=== PATIENT | male | born 1960 | race Caucasian/White ===

== ENCOUNTER → 2021-08-02 | Outpatient (CLI) | payer BC ==
[~2021-08-02] MED LIST: DOBUTamine DRIP for NUC MED 500 MG in DEXTROSE/WATER 1 250ML.BAG IV PRN
--- NOTE | 2021-08-02 14:57 | ECHOS ---
STRESS ECHOCARDIOGRAM DATE OF STUDY: 08/02/2021 INDICATIONS: Chest discomfort. BASELINE HEART RATE: 91 BASELINE BLOOD PRESSURE: 124/82 MAXIMUM HEART RATE: 136 MAXIMUM BLOOD PRESSURE: 134/69 85% MPHR: 136 100% MPHR: 160 METS: NA MAXIMUM STAGE REACHED: 3 TOTAL EXERCISE TIME: 8:12 infusion time CLINICAL INFORMATION: STRESS DATA: Pre-testing physical examination showed a heart rate of 91, pressure 124/81 mmHg. Baseline EKG showed sinus mechanism. Dobutamine infusion at a dose of 10 mcg/kg per minute was initiated and increased to 30 mcg/kg per minute. Max heart rate was 180, which is about 85% of maximum predicted heart rate and maximum blood pressure was 152/64 mmHg. Clinically the patient did not have any symptoms. The EKG did not show any significant ST or T-wave abnormalities concerning for ischemia. An echocardiogram from parasternal long axis view, parasternal short axis view, apical 4-chamber and apical 2-chamber views were obtained as the baseline images at low dose dobutamine infusion at peak heart rate as well as on recovery. The echocardiogram images did not show any evidence of wall motion abnormalities concerning for ischemia. CONCLUSION: 1. Normal EKG in response to dobutamine. 2. Normal echocardiogram in response to dobutamine. MMODL / IJN: [id number] /
== END | disposition home or self-care (01) ==
LOC: RADNMMAIN 09:50
PROVIDERS: ATTEND Family Medicine
DX: R07.89 Other chest pain (principal)
CPT/HCPCS: 93351

== ENCOUNTER → 2022-08-11 | Outpatient (CLI) | payer BC ==
--- NOTE | 2022-08-11 12:16 | P.SLEEP ---
History of Present Illness DATE: 08/11/2022 CONSULTATION/NEW PATIENT EVALUATION HISTORY OF PRESENT ILLNESS/SLEEP-WAKE EVALUATION: 62year old lady gentleman had been evaluated in the sleep center for possible obstructive sleep apnea hypopnea syndrome. SLEEP SCHEDULE: Usually sleep schedule from 10:30 PM until 4 AM on weekdays [], during days off[]. FALLING ASLEEP: Usually no significant problems with the falling asleep, no TV in bedroom. DURING SLEEP: Patient snores and wakes up once with nocturia. After awakening at around 3- 4 AM patient cannot fall asleep again. No history of hypnogogical hallucinations, sleep paralysis, or cataplexy. DURING THE DAY/WAKE STATE: During the day patient has difficulties to pay attention, falling asleep, has problems with memory, concentration, irritability. Carter sleepiness scale is 7. Patient may take 2 naps during the daytime. PAST MEDICAL HISTORY: COPD, diabetes mellitus, poor blood circulation in legs. PAST SURGICAL HISTORY: Hernia repair. MEDICATIONS: Metformin, Janumet, Prilosec, Breo, spiriva, aspirin 81 mg once a day, vitamin D. SOCIAL HISTORY: Positive history of smoking for more than 40 years up to one and a half pack a day, patient continued to smoke , alcohol consumption occasional. FAMILY HISTORY: Heart problems, arthritis. REVIEW OF SYSTEMS: Snoring, awakenings from sleep with difficulties to reinitiate sleep again. No fevers. No double vision. No recent chest pain. No shortness of breath. No abdominal pain. No bleeding episodes. No blood in urine. No seizure episodes. PHYSICAL EXAMINATION: GENERAL: A pleasant patient without any distress. VITAL SIGNS: BP 127/78, HR 89, RR 16, weight 195.8 pounds, height 5 foot 8-1/4 inches, body mass index 29.4. HEENT: PERRLA, EOMI. Evaluation of oropharynx showed tongue protrudes midline, low position of soft palate Mallampati 4. NECK: Supple. No JVD. Thyroid is not palpable. 16 and 1/8 inches in circumference. LUNGS: Few wheezing and rhonchi. HEART: S1, S2 regular. No murmurs, gallops or rubs. ABDOMEN: Soft and nontender. Bowel sounds are present. No organomegaly appreciated. Slightly obese EXTREMITIES: No clubbing or cyanosis. INTERNETWORKING TECHNICIAN: Awake, alert, and oriented x3. Cranial nerves 2 to 7 intact. There is no fasciculation or atrophy noted. No focal deficits observed. ASSESSMENT: 1. Snoring, awakenings from sleep with nocturia, extremely low position of soft palate Mallampati 4, sleepiness during the day. Obstructive sleep apnea hypopnea syndrome. 2. COPD. 3 history of smoking for about 60 pack years, patient continued to smoke. 4. History of arterial insufficiency of the legs with intermittent claudication. 5 diabetes mellitus. 6. Status post hernia repair. PLAN: 1. Polysomnography for evaluation of patient's breathing during sleep. 2. CPAP/BiPAP titration if sleep study confirms obstructive sleep apnea- hypopnea syndrome. 3. Preferable position during sleep on the side. 4. No driving if patient feels any sleepiness. Patient is aware of civil and criminal liability for unsafe driving. 5. Sleep hygiene with regular sleep time for at least 7.5-8 hours. 6. Watching weight. 7. Smoking cessation program. Thank you very much for referring this patient for consultation. Sincerely, Gopi Joyner MD, PhD, FAASM. Diplomat of [employer], Sleep Medicine Board by [employer] Cof[employer] of [facility] Medications and Allergies Allergies Allergy/AdvReac Type Severity Reaction Status Date / Time No Known Allergies Allergy Unverified 08/02/21 10:04 Sleep Note - Sleep Note Sleep Note: Temperature: Pulse Rate: Respiratory Rate: Blood Pressure: SpO2: Height: Weight: BMI: Neck Circumference:
--- NOTE | 2022-08-11 12:21 | P.SLEEP ---
History of Present Illness DATE: 08/11/2022 CONSULTATION/NEW PATIENT EVALUATION HISTORY OF PRESENT ILLNESS/SLEEP-WAKE EVALUATION: 62 year old gentleman had b een evaluated in the sleep center for possible obstructive sleep apnea hypopnea syndrome. SLEEP SCHEDULE: Usually sleep schedule from 10:30 PM until 4 AM on weekdays [], during days off[]. FALLING ASLEEP: Usually no significant problems with the falling asleep, no TV in bedroom. DURING SLEEP: Patient snores and wakes up once with nocturia. After awakening at around 3- 4 AM patient cannot fall asleep again. No history of hypnogogical hallucinations, sleep paralysis, or cataplexy. DURING THE DAY/WAKE STATE: During the day patient has difficulties to pay attention, falling asleep, has problems with memory, concentration, irritability. [place] sleepiness scale is 7. Patient may take 2 naps during the daytime. PAST MEDICAL HISTORY: COPD, diabetes mellitus, poor blood circulation in legs. PAST SURGICAL HISTORY: Hernia repair. MEDICATIONS: Metformin, Janumet, Prilosec, Breo, spiriva, aspirin 81 mg once a day, vitamin D. SOCIAL HISTORY: Positive history of smoking for more than 40 years up to one and a half pack a day, patient continued to smoke , alcohol consumption occasional. FAMILY HISTORY: Heart problems, arthritis. REVIEW OF SYSTEMS: Snoring, awakenings from sleep with difficulties to reinitiate sleep again. No fevers. No double vision. No recent chest pain. No shortness of breath. No abdominal pain. No bleeding episodes. No blood in urine. No seizure episodes. PHYSICAL EXAMINATION: GENERAL: A pleasant patient without any distress. VITAL SIGNS: BP 127/78, HR 89, RR 16, weight 195.8 pounds, height 5 foot 8-1/4 inches, body mass index 29.4. HEENT: PERRLA, EOMI. Evaluation of oropharynx showed tongue protrudes midline, low position of soft palate Mallampati 4. NECK: Supple. No JVD. Thyroid is not palpable. 16 and 1/8 inches in circumference. LUNGS: Few wheezing and rhonchi. HEART: S1, S2 regular. No murmurs, gallops or rubs. ABDOMEN: Soft and nontender. Bowel sounds are present. No organomegaly appreciated. Slightly obese EXTREMITIES: No clubbing or cyanosis. ELECTRONIC TECHNICIAN: Awake, alert, and oriented x3. Cranial nerves 2 to 7 intact. There is no fasciculation or atrophy noted. No focal deficits observed. ASSESSMENT: 1. Snoring, awakenings from sleep with nocturia, extremely low position of soft palate Mallampati 4, sleepiness during the day. Obstructive sleep apnea hypopnea syndrome. 2. COPD. 3 history of smoking for about 60 pack years, patient continued to smoke. 4. History of arterial insufficiency of the legs with intermittent claudication. 5 diabetes mellitus. 6. Status post hernia repair. PLAN: 1. Polysomnography for evaluation of patient's breathing during sleep. 2. CPAP/BiPAP titration if sleep study confirms obstructive sleep apnea- hypopnea syndrome. 3. Preferable position during sleep on the side. 4. No driving if patient feels any sleepiness. Patient is aware of civil and criminal liability for unsafe driving. 5. Sleep hygiene with regular sleep time for at least 7.5-8 hours. 6. Watching weight. 7. Smoking cessation program. Thank you very much for referring this patient for consultation. Sincerely, Gopi Joyner MD, PhD, FAASM. Diplomat of [place] [employer], Sleep Medicine Board by [place] [employer] [facility] [place] Medications and Allergies Allergies Allergy/AdvReac Type Severity Reaction Status Date / Time No Known Allergies Allergy Unverified 08/02/21 10:04
== END ==
LOC: SLEEP 11:26
PROVIDERS: ATTEND Internal Medicine
DX: G47.33 Obstructive sleep apnea (adult) (pediatric) (principal); J44.9 Chronic obstructive pulmonary disease, unspecified; Z87.891 Personal history of nicotine dependence; E11.9 Type 2 diabetes mellitus without complications; I73.9 Peripheral vascular disease, unspecified; Z79.4 Long term (current) use of insulin
CPT/HCPCS: 99211